=== PATIENT | female | born 1960 | race Caucasian/White ===

== ENCOUNTER 2016-06-29 17:38 | Emergency (ER) | payer OTHER, MEDICARE ==
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
[~2016-06-29 17:38] MED LIST: ASPIRIN81 MG PO; CARAFATE PO; CELEXA20 MG PO; COREG PO; LIPITOR PO; LISINOPRIL5 MG PO; PROTONIX PO; ZETIA PO
== END 2016-06-29 20:23 | disposition home or self-care (01) ==
LOC: CFTX 17:38
DX: S16.1XXA Strain of muscle, fascia and tendon at neck level, initial encounter (principal); R51 Headache; I10 Essential (primary) hypertension; I25.2 Old myocardial infarction; Z88.1 Allergy status to other antibiotic agents; V49.10XA Passenger injured in collision with unspecified motor vehicles in nontraffic accident, initial encounter
CPT/HCPCS: 70450; 71020; 72125; 73590; 73610; 99284